=== PATIENT | male | born 1995 | race Caucasian/White ===

== ENCOUNTER 2017-04-13 19:51 | Emergency (ER) | payer MEDICAID, OTHER ==
[2017-04-13 20:16] VITALS: BP 151/97
--- NOTE | 2017-04-13 21:12 | EDM.PDOC ---
ED HPI GENERAL MEDICAL PROBLEM - General Chief Complaint: ENT Problem Stated Complaint: SORE THROAT NOT FEELING WELL Time Seen by Provider: 04/13/17 20:00 Source of Information: Reports: Patient History Limitations: Reports: No Limitations - History of Present Illness INITIAL COMMENTS - FREE TEXT/NARRATIVE: sore throat; this is a 21 year old male, present to ER for evaluation painful sore throat. Has been sick for four days. He works for [employer], has been exposed to sick people in the past week. He had all his immunization and flu shot per [employer]. Onset: Gradual Duration: Day(s): (4) Location: Reports: Generalized (fever, body aches), Other (sore throat) Quality: Reports: Ache Severity: Moderate Improves with: Reports: Rest Context: Reports: Sick Contact Associated Symptoms: Reports: Fever/Chills, Loss of Appetite, Nausea/Vomiting - Related Data Allergies Allergy/AdvReac Type Severity Reaction Status Date / Time No Known Allergies Allergy Verified 12/02/14 13:45 Home Meds: Home Meds NK [No Known Home Meds] 04/13/17 [History] Past Medical History - Past Health History Medical/Surgical History: Denies Medical/Surgical History Social & Family History - Tobacco Use Smoking Status *Q: Never Smoker - Recreational Drug Use Recreational Drug Use: No - Living Situation & Occupation Living situation: Reports: Single Occupation: Employed ([employer]) ED ROS ENT - Review of Systems Review Of Systems: See Below Constitutional: Reports: Fever, Chills, Malaise, Decreased Appetite HEENT: Reports: Throat Pain Respiratory: Reports: No Symptoms Cardiovascular: Reports: No Symptoms Endocrine: Reports: No Symptoms GI/Abdominal: Reports: Nausea : Reports: No Symptoms Musculoskeletal: Reports: No Symptoms Skin: Reports: No Symptoms Neurological: Reports: No Symptoms Psychiatric: Reports: No Symptoms Hematologic/Lymphatic: Reports: No Symptoms Immunologic: Reports: No Symptoms ED EXAM, ENT - Physical Exam Exam: See Below Exam Limited By: No Limitations General Appearance: Alert, WD/WN, No Apparent Distress Eye Exam: Bilateral Eye: Normal Inspection Ears: Normal External Exam, Normal Canal, TM Erythema Nose: Normal Inspection, Normal Mucousa, No Blood Mouth/Throat: Normal Gums, Normal Lips, Normal Teeth, Tonsillar Erythema, Tonsillar Exudates, Tonsillar Swelling, Other (uvula midline without deviation) Head: Atraumatic, Normocephalic Neck: Supple, Full Range of Motion, Lymphadenopathy (R), Lymphadenopathy (L) Respiratory/Chest: No Respiratory Distress, Lungs Clear, Normal Breath Sounds, No Accessory Muscle Use, Chest Non-Tender Cardiovascular: Regular Rate, Rhythm, No Murmur GI/Abdominal: Normal Bowel Sounds, Soft, Non-Tender, No Organomegaly, No Distention (Male) Exam: Deferred Rectal (Males) Exam: Deferred Back: Normal Inspection, Full Range of Motion Extremities: Normal Inspection, Normal Range of Motion, Non-Tender, No Pedal Edema, Normal Capillary Refill Neurological: Alert, Oriented, No Motor/Sensory Deficits Psychiatric: Normal Affect, Normal Mood Skin: Warm, Dry, Intact, Normal Color, No Rash Lymphatic: No Adenopathy Course - Vital Signs Last Recorded V/S: Last Vital Signs Temp 36.5 C 04/13/17 20:24 Pulse 81 04/13/17 20:24 Resp 20 04/13/17 20:24 BP 151/97 H 04/13/17 20:24 Pulse Ox 98 04/13/17 20:24 - Orders/Labs/Meds Orders: Active Orders 24 hr Category Date Time Status CULTURE STREP A CONFIRMATION [] Stat Lab 04/13/17 20:19 Results STREP SCRN A RAPID W CULT CONF [] Stat Lab 04/13/17 20:19 Results - Re-Assessments/Exams Free Text/Narrative Re-Assessment/Exam: 04/13/17 rapid strep negative, influenza A and B negative due to tonsils enlarge 3+, red, exudates present, will treatment for presumed strep throat. Departure - Departure Time of Disposition: 21:20 Disposition: Home, Self-Care 01 Condition: Good Clinical Impression: Tonsillitis - Discharge Information Instructions: Tonsillitis, [id number] Referrals: PCP,None [Primary Care Provider] - Forms: ED Department Discharge Care Plan Goals: Tonsillitis, presumed strep -start tonight; Amoxicillin 500mg take one three times a day for 10 days -start tonight; Phenergan 25mg take one every 6 to 8 hours as needed for nausea -may take Tylenol or Motrin for pain or fever -advise no work x 2 4 hours -advised to push fluids, rest, take medication as directed, Return to Clinic or ER if has worsen symptoms or not improved - Problem List & Annotations (1) Tonsillitis SNOMED Code(s): 94449553 Code(s): J03.90 - ACUTE TONSILLITIS, UNSPECIFIED Status: Acute Priority: High - Problem List Review Problem List Initiated/Reviewed/Updated: Yes - My Orders Last 24 Hours: My Active Orders 04/13/17 20:19 CULTURE STREP A CONFIRMATION [RM] Stat STREP SCRN A RAPID W CULT CONF [] Stat - Assessment/Plan Last 24 Hours: My Active Orders 04/13/17 20:19 CULTURE STREP A CONFIRMATION [RM] Stat STREP SCRN A RAPID W CULT CONF [] Stat Plan: Tonsillitis, presumed strep -start tonight; Amoxicillin 500mg take one three times a day for 10 days -start tonight; Phenergan 25mg take one every 6 to 8 hours as needed for nausea -may take Tylenol or Motrin for pain or fever -advise no work x 2 4 hours -advised to push fluids, rest, take medication as directed, Return to Clinic or ER if has worsen symptoms or not improved
== END 2017-04-13 21:20 | disposition home or self-care (01) ==
LOC: JP.ED 19:51
DX: J03.90 Acute tonsillitis, unspecified (principal)
CPT/HCPCS: 87081; 87430; 87804; 99283

== ENCOUNTER 2017-09-27 19:58 | Emergency (ER) | payer OTHER ==
[2017-09-27 20:29] VITALS: BP 138/72
--- NOTE | 2017-09-27 20:32 | EDM.PDOC ---
ED HPI GENERAL MEDICAL PROBLEM - General Chief Complaint: Flank Pain Stated Complaint: SHARP PAIN IN RT SIDE, VOMITING Time Seen by Provider: 09/27/17 20:32 Source of Information: Reports: Patient History Limitations: Reports: No Limitations - History of Present Illness INITIAL COMMENTS - FREE TEXT/NARRATIVE: With right flank pain since yesterday. Became more painful today about 4pm. Has vomited three times today. Is urinating less the last several days. No fever. Nauseated at times. 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 - Related Data Allergies Allergy/AdvReac Type Severity Reaction Status Date / Time No Known Allergies Allergy Verified 09/27/17 20:21 Home Meds: Home Meds NK [No Known Home Meds] 04/13/17 [History] Past Medical History - Past Health History Medical/Surgical History: Denies Medical/Surgical History Social & Family History - Tobacco Use Smoking Status *Q: Never Smoker - Living Situation & Occupation Living situation: Reports: Single Occupation: Employed ([employer]) ED ROS GENERAL - Review of Systems Review Of Systems: See Below Constitutional: Reports: No Symptoms HEENT: Reports: No Symptoms Respiratory: Reports: No Symptoms Cardiovascular: Reports: No Symptoms Endocrine: Reports: No Symptoms GI/Abdominal: Reports: Vomiting, Other (right flank pain) : Reports: Urinary Retention Musculoskeletal: Reports: No Symptoms Skin: Reports: No Symptoms Neurological: Reports: No Symptoms Psychiatric: Reports: No Symptoms Hematologic/Lymphatic: Reports: No Symptoms Immunologic: Reports: No Symptoms ED EXAM,LOWER BACK PAIN/INJURY - Physical Exam Exam: See Below Exam Limited By: No Limitations General Appearance: Alert, WD/WN, No Apparent Distress, Other (dry heaving upon arrival) Ears: Normal External Exam, Normal Canal, Hearing Grossly Normal, Normal TMs Nose: Normal Inspection, Normal Mucosa, No Blood Throat/Mouth: Normal Inspection Head: Atraumatic, Normocephalic Neck: Normal Inspection, Supple, Non-Tender, Full Range of Motion Respiratory/Chest: No Respiratory Distress, Lungs Clear, Normal Breath Sounds, No Accessory Muscle Use, Chest Non-Tender Cardiovascular: Normal Peripheral Pulses, Regular Rate, Rhythm, No Edema, No Gallop, No JVD, No Murmur, No Rub GI/Abdominal: Normal Bowel Sounds, Soft, Non-Tender, No Organomegaly, No Distention, No Abnormal Bruit, No Mass Back Exam: CVA Tenderness (R) Extremities: Normal Inspection, Normal Range of Motion, Non-Tender, No Pedal Edema, Normal Capillary Refill Neurological: Alert, Normal Mood/Affect, Normal Dorsiflexion, CN II-XII Intact, Normal Plantar Flexion, Normal Gait, Normal Reflexes, No Motor/Sensory Deficits , Oriented x 3 Course - Vital Signs Last Recorded V/S: Last Vital Signs Temp 97.0 F 09/27/17 20:27 Pulse 61 09/27/17 20:27 Resp 14 09/27/17 20:27 BP 138/72 09/27/17 20:27 Pulse Ox 97 09/27/17 20:27 - Orders/Labs/Meds Orders: Active Orders 24 hr Category Date Time Status Kidney Stone Protocol [CT] Stat Exams 09/27/17 20:46 Taken UA W/MICROSCOPIC [URIN] Stat Lab 09/27/17 20:31 Ordered Labs: Laboratory Tests 09/27/17 09/27/17 09/27/17 Range/Units 20:31 20:50 20:50 WBC 7.4 (4.5-11.0) K/uL RBC 5.12 (4.30-5.90) M/uL Hgb 14.6 (12.0-15.0) g/dL Hct 42.8 (40.0-54.0) % MCV 84 (80-98) fL MCH 29 (27-31) pg MCHC 34 (32-36) % Plt Count 295 (150-400) K/uL Neut % (Auto) 59 (36-66) % Lymph % (Auto) 26 (24-44) % [place] % (Auto) 11 H (2-6) % Eos % (Auto) 4 (2-4) % Baso % (Auto) 0 (0-1) % Sodium 141 (140-148) mmol/L Potassium 4.2 (3.6-5.2) mmol/L Chloride 104 (100-108) mmol/L Carbon Dioxide 30 (21-32) mmol/L Anion Gap 7.1 (5.0-14.0) mmol/L BUN 14 (7-18) mg/dL Creatinine 1.1 (0.8-1.3) mg/dL Est Cr Clr Drug Dosing 113.14 mL/min Estimated GFR (MDRD) > 60 (>60) Glucose 107 H (74-106) mg/dL Calcium 8.4 L (8.5-10.1) mg/dL Urine Color Yellow Urine Appearance Clear Urine pH 6.0 (4.5-8.0) Ur Specific [place] 1.025 (1.008-1.030) Urine Protein Negative (NEGATIVE) mg/dL Urine Glucose (UA) Normal (NEGATIVE) mg/dL Urine Ketones Negative (NEGATIVE) mg/dL Urine Occult Blood Negative (NEGATIVE) Urine Nitrite Negative (NEGAITVE) Urine Bilirubin Small (NEGATIVE) Urine Urobilinogen 1 (NORMAL) mg/dL Ur Leukocyte Esterase Negative (NEGATIVE) Urine RBC 0-5 (0-5) Urine WBC 0-5 (0-5) Ur Epithelial Cells Few Amorphous Sediment Not seen Urine Bacteria Few Urine Mucus Many Meds: Medications Discontinued Medications Generic Name Dose Route Start Last Admin Trade Name Mike PRN Reason Stop Dose Admin Sodium Chloride 1,000 mls @ 999 drops/sec 09/27/17 20:40 09/27/17 22:36 Normal Saline IV 09/27/17 20:41 999 drops/sec .BOLUS ONE Administration Ketorolac Tromethamine 30 mg 09/27/17 22:25 09/27/17 22:35 Toradol IVPUSH 09/27/17 22:26 30 mg ONETIME ONE Administration Ondansetron HCl 4 mg 09/27/17 20:40 09/27/17 20:51 Zofran IVPUSH 09/27/17 20:41 4 mg ONETIME ONE Administration Departure - Departure Time of Disposition: 22:45 Disposition: Home, Self-Care 01 Condition: Good Clinical Impression: Kidney cysts - Discharge Information Referrals: PCP,None [Primary Care Provider] - Forms: ED Department Discharge Additional Instructions: Labs WNL. Pt given NS 1000ml IV. Zofran 4mg IV resolves his nausea. Toradol 30mg IV given for pain. CT of abdomen reveals multiple cysts to his right kidneys. Recommend followup with nephrology. Pt to increase fluids. May use Tylenol 650mg every 4-6 hours as needed for pain. - Problem List & Annotations (1) Kidney cysts SNOMED Code(s): 607333148 Code(s): N28.1 - CYST OF KIDNEY, ACQUIRED Status: Acute Priority: Medium Current Visit: Yes - My Orders Last 24 Hours: My Active Orders 09/27/17 20:31 UA W/MICROSCOPIC [URIN] Stat 09/27/17 20:46 Kidney Stone Protocol [CT] Stat - Assessment/Plan Last 24 Hours: My Active Orders 09/27/17 20:31 UA W/MICROSCOPIC [URIN] Stat 09/27/17 20:46 Kidney Stone Protocol [CT] Stat
[2017-09-27] MEDS ORDERED: Ondansetron 4 MG/2 ML SDV IVPUSH ONE (20:40)
[2017-09-27] MEDS: Sodium Chloride 0.9% 1,000 ML IV ONE ×2 (20:51→22:36)
[2017-09-27] MEDS ORDERED: Ketorolac 30 MG/ML SDV IVPUSH ONE (22:25)
== END 2017-09-27 23:13 | disposition home or self-care (01) ==
LOC: JP.ED 19:58
DX: N28.1 Cyst of kidney, acquired (principal)
CPT/HCPCS: 36415; 74176; 80048; 81001; 85025; 96361; 96374; 96375; 99284; J1885; J2405; J7030

== ENCOUNTER 2017-10-13 18:53 | Emergency (ER) | payer OTHER ==
[2017-10-13 19:06] VITALS: BP 136/84
--- NOTE | 2017-10-13 19:40 | EDM.PDOC ---
ED HPI GENERAL MEDICAL PROBLEM - General Chief Complaint: Fever Stated Complaint: KIDNEY INFECTION? 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 Started sometime mid morning or noon. He did eat lunch then had nausea vomited 2 shortly after lunch. After that the nausea improved he was able to get her without any difficulty. No abdominal pain No diarrhea Some chills fever some sweats and some muscle aches, mild headache. No rash no joint swelling no cough or difficulty breathing no nasal congestion coryza sore throat or sore ears. History of kidney stones and kidney cysts, no known history of kidney infection as far as he can recall No urinary symptoms Generalized Pain Score (Numeric/FACES): 6 - Related Data Allergies Allergy/AdvReac Type Severity Reaction Status Date / Time No Known Allergies Allergy Verified 10/13/17 19:06 Home Meds: Home Meds NK [No Known Home Meds] 04/13/17 [History] Past Medical History - Past Health History Medical/Surgical History: Denies Medical/Surgical History Genitourinary History: Reports: Renal Calculus, Other (See Below) Other Genitourinary History: Renasl cysts Psychiatric History: Reports: Depression Social & Family History - Tobacco Use Smoking Status *Q: Never Smoker Second Hand Smoke Exposure: No - Caffeine Use Caffeine Use: Reports: Soda - Recreational Drug Use Recreational Drug Use: No - Living Situation & Occupation Living situation: Reports: Single Occupation: Employed ([employer] and [email or web address]) ED ROS GENERAL - Review of Systems Review Of Systems: See Below Constitutional: Reports: Fever, Chills, Diaphoresis HEENT: Reports: No Symptoms Respiratory: Reports: No Symptoms Cardiovascular: Reports: No Symptoms GI/Abdominal: Reports: Nausea, Vomiting (At noon today). Denies: Abdominal Pain , Diarrhea : Reports: No Symptoms Musculoskeletal: Reports: Muscle Pain (Mild aches today) Skin: Reports: No Symptoms Neurological: Reports: Headache (Mild). Denies: Numbness, Trouble Speaking, Difficulty Walking, Change in Speech, Gait Disturbance Psychiatric: Reports: No Symptoms Hematologic/Lymphatic: Reports: No Symptoms Immunologic: Reports: No Symptoms ED EXAM, GENERAL - Physical Exam Exam: See Below Exam Limited By: No Limitations General Appearance: Alert, No Apparent Distress, Other (No fever currently, mild tachycardia at 104, no difficulty breathing or speaking, color normal) Eye Exam: Bilateral Eye: Normal Inspection Ears: Normal External Exam, Normal Canal, Hearing Grossly Normal, Normal TMs Nose: Normal Inspection, Normal Mucosa Throat/Mouth: Normal Inspection, Normal Lips, Normal Teeth, Normal Oropharynx, Normal Voice Head: Atraumatic, Normocephalic Neck: Normal Inspection, Supple, Non-Tender. No: Lymphadenopathy (R), Lymphadenopathy (L) Respiratory/Chest: No Respiratory Distress, Lungs Clear, Normal Breath Sounds, No Accessory Muscle Use Cardiovascular: Normal Peripheral Pulses, Regular Rate, Rhythm, Tachycardia ( Mild) GI/Abdominal: Normal Bowel Sounds, Soft, Non-Tender, No Distention Back Exam: Normal Inspection Extremities: Normal Inspection Neurological: Alert, Oriented, No Motor/Sensory Deficits Psychiatric: Normal Affect, Normal Mood Skin Exam: Warm, Dry, Intact, Normal Color, No Rash Lymphatic: No Adenopathy Course - Vital Signs Last Recorded V/S: Last Vital Signs Temp 37.6 C 10/13/17 19:05 Pulse 104 H 10/13/17 19:05 Resp 16 10/13/17 19:05 BP 136/84 10/13/17 19:05 Pulse Ox 97 10/13/17 19:05 - Orders/Labs/Meds Orders: Active Orders 24 hr Category Date Time Status UA W/MICROSCOPIC [URIN] Stat Lab 10/13/17 19:42 Ordered Labs: Laboratory Tests 10/13/17 Range/Units 19:42 Urine Color Yellow Urine Appearance Clear Urine pH 7.0 (4.5-8.0) Ur Specific [place] 1.015 (1.008-1.030) Urine Protein Negative (NEGATIVE) mg/dL Urine Glucose (UA) Normal (NEGATIVE) mg/dL Urine Ketones Negative (NEGATIVE) mg/dL Urine Occult Blood Negative (NEGATIVE) Urine Nitrite Negative (NEGAITVE) Urine Bilirubin Negative (NEGATIVE) Urine Urobilinogen Normal (NORMAL) mg/dL Ur Leukocyte Esterase Negative (NEGATIVE) Urine RBC 0-5 (0-5) Urine WBC Not seen (0-5) Ur Epithelial Cells Rare Amorphous Sediment Rare Urine Bacteria Not seen Urine Mucus Not seen - Re-Assessments/Exams Free Text/Narrative Re-Assessment/Exam: 10/13/17 20:11 22-year-old male presenting with less than 24 hours of fever Associated symptoms include nausea and emesis at noon but he ate dinner without problem. Mild headache which is minimal He did leave work early Fever has improved after antipyretic Urinalysis negative Symptomatic treatment Note for work Get rechecked if severe headache repeated vomiting bad cough or difficulty breathing rash or joint swelling or other additional symptoms Departure - Departure Time of Disposition: 20:12 Disposition: Home, Self-Care 01 Condition: Good Clinical Impression: Febrile illness - Discharge Information Instructions: Fever, Adult Referrals: PCP,None [Primary Care Provider] - Forms: ED Department Discharge, ED Return to Work/School Form Additional Instructions: Fever, can have many causes Most likely a viral infection However bacterial infections and tickborne illnesses can also occur Get rechecked if you were having fever more than 72 hours, you have repeated vomiting, severe headaches, bad abdominal pain, shortness of breath, or new rashes. Drink plenty of fluids Take acetaminophen or ibuprofen for fever, headache, and muscle aches as needed - My Orders Last 24 Hours: My Active Orders 10/13/17 19:42 UA W/MICROSCOPIC [URIN] Stat - Assessment/Plan Last 24 Hours: My Active Orders 10/13/17 19:42 UA W/MICROSCOPIC [URIN] Stat
== END 2017-10-13 20:30 | disposition home or self-care (01) ==
LOC: JP.ED 18:53
DX: R50.9 Fever, unspecified (principal); F32.9 Major depressive disorder, single episode, unspecified
CPT/HCPCS: 81001; 99284

== ENCOUNTER 2019-12-15 07:08 | Emergency (ER) | payer OTHER ==
[2019-12-15] MEDS ORDERED: Sodium Chloride 0.9% 500 ML IV SCH (07:45)
[2019-12-15] MEDS ORDERED: Ketorolac 30 MG/ML SDV IVPUSH ONE (07:48)
[2019-12-15] MEDS ORDERED: Sodium Chloride 0.9% 10 ML Syringe FLUSH ONE (07:54)
[2019-12-15] MEDS ORDERED: Iopamidol 612 MG/ML 150 ML Bottle IV SCH (08:00)
--- NOTE | 2019-12-15 08:13 | EDM.PDOC ---
ED HPI GENERAL MEDICAL PROBLEM - General Chief Complaint: Abdominal Pain Stated Complaint: Patient has pain in the right side of his stomach since 5 AM, it is in the right lower quadrant, no fevers vomiting or chills, no dysuria. He does have a history of kidney stones. He says this feels different. Time Seen by Provider: 12/15/19 07:38 Right Lower Abdomen Pain Score (Numeric/FACES): 7 - Related Data Allergies Allergy/AdvReac Type Severity Reaction Status Date / Time No Known Allergies Allergy Verified 12/15/19 07:29 Home Meds: Home Meds NK [No Known Home Meds] 04/13/17 [History] Past Medical History - Past Health History Medical/Surgical History: Denies Medical/Surgical History Genitourinary History: Reports: Renal Calculus, Other (See Below) Other Genitourinary History: Renal cysts Musculoskeletal History: Reports: Fracture Psychiatric History: Reports: Depression Social & Family History - Caffeine Use Caffeine Use: Reports: Soda - Recreational Drug Use Recreational Drug Use: No - Living Situation & Occupation Living situation: Reports: Single Occupation: Employed ([employer]) ED ROS GENERAL - Review of Systems Review Of Systems: Comprehensive ROS is negative, except as noted in HPI. ED EXAM, GENERAL - Physical Exam Exam: See Below Exam Limited By: No Limitations General Appearance: Alert, WD/WN, No Apparent Distress Ears: Normal External Exam, Normal Canal, Hearing Grossly Normal, Normal TMs Throat/Mouth: Normal Inspection, Normal Lips, Normal Teeth, Normal Gums, Normal Oropharynx, Normal Voice, No Airway Compromise Head: Atraumatic, Normocephalic Neck: Normal Inspection, Supple, Non-Tender, Full Range of Motion Respiratory/Chest: No Respiratory Distress, Lungs Clear, Normal Breath Sounds, No Accessory Muscle Use, Chest Non-Tender Cardiovascular: Normal Peripheral Pulses, Regular Rate, Rhythm, No Edema, No Gallop, No JVD, No Murmur, No Rub GI/Abdominal: Normal Bowel Sounds, Soft, No Organomegaly, No Distention, No Abnormal Bruit, No Mass. No: Non-Tender (There is pain with palpation of the right lower quadrant with mild rebound tenderness.) (Male) Exam: No Hernia Back Exam: Normal Inspection Extremities: Normal Inspection Neurological: Alert Psychiatric: Normal Affect Skin Exam: Warm, Dry Course - Vital Signs Text/Narrative:: Patient did well here in the emergency department felt better. CT scans are as noted in radiologist note., Patient may have early appendicitis but at this time we see no swelling here, he has some mesenteric lymph nodes that are inflamed and this may be what is causing his discomfort, I see no signs of constipation or obstruction and I see no hydronephrosis and the patient's labs look good. We will send him out with instructions for possible early appendicitis as well as mesenteric adenitis and he is to return for any new or worsening symptoms Last Recorded V/S: Last Vital Signs Temp 98.5 F 12/15/19 07:29 Pulse 56 L 12/15/19 08:42 Resp 16 12/15/19 08:42 BP 117/73 12/15/19 08:42 Pulse Ox 99 12/15/19 08:42 - Orders/Labs/Meds Orders: Active Orders 24 hr Category Date Time Status Nothing per Oral Now Diet [DIET] Diet 12/15/19 Breakfast Active Sodium Chloride 0.9% [Normal Saline] 1,000 ml Med 12/15/19 08:15 Active IV ASDIRECTED Medication Orders Sodium Chloride (Normal Saline) 1,000 mls @ 1,000 mls/hr IV ASDIRECTED ASHOK Last Admin: 12/15/19 08:20 Dose: 1,000 mls/hr Documented by: THOMAS Labs: Laboratory Tests 12/15/19 12/15/19 12/15/19 Range/Units 07:55 07:58 07:58 WBC 9.1 (4.5-11.0) K/uL RBC 5.22 (4.30-5.90) M/uL Hgb 14.9 (12.0-15.0) g/dL Hct 44.7 (40.0-54.0) % MCV 86 (80-98) fL MCH 29 (27-31) pg MCHC 33 (32-36) % Plt Count 274 (150-400) K/uL Neut % (Auto) 80 H (36-66) % Lymph % (Auto) 11 L (24-44) % [place] % (Auto) 9 H (2-6) % Eos % (Auto) 1 L (2-4) % Baso % (Auto) 0 (0-1) % Sodium 141 (140-148) mmol/L Potassium 4.7 (3.6-5.2) mmol/L Chloride 104 (100-108) mmol/L Carbon Dioxide 28 (21-32) mmol/L Anion Gap 9.0 (5.0-14.0) mmol/L BUN 10 (7-18) mg/dL Creatinine 0.9 (0.8-1.3) mg/dL Est Cr Clr Drug Dosing 135.96 mL/min Estimated GFR (MDRD) > 60 (>60) Glucose 121 H (74-106) mg/dL Calcium 8.9 (8.5-10.1) mg/dL Total Bilirubin 0.6 (0.2-1.0) mg/dL AST 16 (15-37) U/L ALT 11 L (12-78) U/L Alkaline Phosphatase 45 L (46-116) U/L Total Protein 7.6 (6.4-8.2) g/dL Albumin 4.2 (3.4-5.0) g/dL Globulin 3.4 (2.3-3.5) g/dL Albumin/Globulin Ratio 1.2 (1.2-2.2) Urine Color Yellow (YELLOW) Urine Appearance Clear (CLEAR) Urine pH 7.0 (5.0-8.0) Ur Specific [place] 1.025 (1.008-1.030) Urine Protein Negative (NEGATIVE) mg/dL Urine Glucose (UA) Negative (NEGATIVE) mg/dL Urine Ketones Negative (NEGATIVE) mg/dL Urine Occult Blood Negative (NEGATIVE) Urine Nitrite Negative (NEGATIVE) Urine Bilirubin Negative (NEGATIVE) Urine Urobilinogen 0.2 (0.2-1.0) EU/dL Ur Leukocyte Esterase Negative (NEGATIVE) Urine RBC Not seen (0-5) Urine WBC Not seen (0-5) Ur Epithelial Cells Not seen Amorphous Sediment Rare Urine Bacteria Not seen Urine Mucus Moderate Meds: Medications Generic Name Dose Route Start Last Admin Trade Name Freq PRN Reason Stop Dose Admin Sodium Chloride 1,000 mls @ 1,000 mls/hr 12/15/19 08:15 12/15/19 08:20 Normal Saline IV 1,000 mls/hr ASDIRECTED ASHOK Administration Discontinued Medications Generic Name Dose Route Start Last Admin Trade Name Freq PRN Reason Stop Dose Admin Sodium Chloride 500 mls @ 500 mls/hr 12/15/19 07:45 Normal Saline IV .BOLUS ASHOK Sodium Chloride 85 mls @ 3 mls/sec 12/15/19 08:00 12/15/19 08:33 Normal Saline IV 12/15/19 08:01 3 mls/sec ASDIRECTED ASHOK Administration Iopamidol 150 ml 12/15/19 08:00 12/15/19 08:39 Isovue-300 (61%) IV 12/15/19 08:01 150 ml . DIRECTED ASHOK Administration Ketorolac Tromethamine 30 mg 12/15/19 07:48 12/15/19 08:01 Toradol IVPUSH 12/15/19 07:49 30 mg ONETIME ONE Administration Sodium Chloride 10 ml 12/15/19 07:54 12/15/19 08:23 Saline Flush FLUSH 12/15/19 07:55 10 ml ONETIME ONE Administration Departure - Departure Time of Disposition: 09:37 Disposition: Home, Self-Care 01 Condition: Good Clinical Impression: Abdominal pain - Discharge Information Instructions: Abdominal Pain, Adult, [id number] Referrals: PCP,None [Primary Care Provider] - Forms: ED Department Discharge Sepsis Event Note (ED) - Evaluation Sepsis Screening Result: No Definite Risk - Focused Exam Vital Signs: Vital Signs Temp Pulse Resp BP Pulse Ox 12/15/19 08:42 56 L 16 117/73 99 12/15/19 07:29 98.5 F 68 16 157/97 H 98 12/15/19 07:27 98.5 F 68 16 157/97 H 98 - My Orders Last 24 Hours: My Active Orders 12/15/19 Breakfast Nothing per Oral Now Diet [DIET] 12/15/19 08:15 Sodium Chloride 0.9% [Normal Saline] 1,000 ml IV ASDIRECTED - Assessment/Plan Last 24 Hours: My Active Orders 12/15/19 Breakfast Nothing per Oral Now Diet [DIET] 12/15/19 08:15 Sodium Chloride 0.9% [Normal Saline] 1,000 ml IV ASDIRECTED
[2019-12-15] MEDS ORDERED: Sodium Chloride 0.9% 1,000 ML IV SCH (08:15)
[2019-12-15 08:42] VITALS: BP 117/73; PULSE 56
--- NOTE | 2019-12-15 09:06 | CT ---
Abdomen Pelvis w Cont CLINICAL HISTORY: Right lower quadrant pain COMPARISON: 2018. TECHNIQUE: Axial tomographic images are obtained from the dome of the diaphragm to the pubic symphysis without IV contrast enhancement. No oral contrast was used. Auto dosage reduction and iterative reconstruction techniques employed. FINDINGS: The lung bases are clear. The liver shows no mass or biliary dilatation. The gallbladder has a normal appearance. The spleen is slightly enlarged. The pancreas shows no mass or inflammatory change. The adrenal glands appear normal bilaterally. The kidneys show scattered low-attenuation foci felt to be multiple renal cysts. The largest measures 2 cm midpole of the right kidney. There are numerous subcentimeter cysts. There is no hydronephrosis. Ureters have normal course and caliber. There is mild generalized bladder wall thickening likely hypertrophy. Moderate enlargement of the seminal vesicles. The aorta has a normal contour. There is no suspicious retroperitoneal adenopathy. There are a few scattered small lymph nodes throughout the mesentery. These are nonspecific. The small intestinal configuration is nonacute. The appendix is not definitively identified. There is no evidence suggest appendicitis. Abdominal pelvic fat planes and low pelvic side iraheta are well demarcated IMPRESSION: Mild splenomegaly There are a few scattered nonspecific mesenteric lymph nodes. No mass or inflammatory change No hydronephrosis. IV contrast may obscure small stones. Generalized bladder wall hypertrophy without focal lesion Moderate generalized enlargement of the seminal vesicles. This has increased since 2018. This is nonspecific
== END 2019-12-15 10:18 | disposition home or self-care (01) ==
LOC: JP.ED 07:08
DX: R10.31 Right lower quadrant pain (principal)
CPT/HCPCS: 36415; 74177; 80053; 81001; 85025; 96361; 96374; 99284; J1885; J7030; J7050; Q9967